=== PATIENT | male | born 1985 | race Caucasian/White ===

== ENCOUNTER → 2017-10-14 | Day surgery (SDC) | payer BC ==
[2017-10-08 09:05] VITALS: BMI 21.0
[~2017-10-14] VITALS: Ht 190.5 cm; Wt 77.3 kg
[~2017-10-14] MED LIST: ACET-1311 PO; LIDOCAINE HCL 2% 2 ML VIAL (20MG/ML) ONE; OMEP20TA PO; PROPOFOL IV EMULSION 10 MG/ML 20 ML VIAL ONE
[2017-10-14 08:28] VITALS: Ht 190.5 cm; Wt 77.3 kg
--- NOTE | 2017-10-14 08:41 | Endo History and Physical ---
History & Physical Date of Service: Oct 14, 2017. Chief Complaint: hx barretts esophagus Referring Physician: Dr. Yisel Smith History of Present Illness 32 yo CM who presents for EGD secondary to Menchaca's Esophagus. Past Surgical History Hx Cardiac Surgery: No Hx Internal Defibrillator: No Hx Pacemaker: No Hx Abdominal Surgery: No Hx of Implantable Prosthesis: No Hx Post-Op Nausea and Vomiting: No Hx Cancer Surgery: No Hx Thoracic Surgery: No Hx Orthopedic: No Hx Urinary Tract Surgery: No Family History IBD Social History Smoking Status: Never Smoker Hx Substance Use: No Hx Alcohol Use: Yes (OCC SOCIAL) Allergies Coded Allergies: Eggs or Egg-derived Products (Verified Allergy, Severe, ANAPHYLAXIS, ) NO KNOWN DRUG ALLERGIES (Verified Allergy, Unknown, NONE, 10/14/17) Current Medications Reported Home Medications Medications Dose Route/Sig Max Daily Dose Days Date Category Tylenol (Acetaminophen) 325 Mg Tab 650 Mg PO PRN 10/08/17 Reported Omeprazole 20 Mg Tab 1 Tab PO BID 11/21/15 Reported Vital Signs Weight (Kilograms): 77.27 Height (Feet): 6 Height (Inches): 3 Date Time Temp Pulse Resp B/P (MAP) Pulse Ox O2 Delivery O2 Flow Rate FiO2 10/14/17 08:35 36.1 57 20 123/80 (94) 100 Room Air Physical Exam General Appearance: WD/WN, no apparent distress Respiratory/Chest: Auscultation: breath sounds normal Cardiovascular: Heart Auscultation: RRR Abdomen: Bowel Sounds: normal Inspection & Palpation: soft, non-distended, no tenderness, guarding & rebound Assessment and Plan Assessment: 32 yo CM who presents for EGD secondary to Menchaca's Esophagus. Plan: Proceed with EGD.
--- NOTE | 2017-10-14 09:32 | Discharge Instructions ---
Endoscopy Patient Instructions Date / Procedure(s) Performed Oct 14, 2017. EGD Allergy Information Coded Allergies: Eggs or Egg-derived Products (Verified Allergy, Severe, ANAPHYLAXIS, ) NO KNOWN DRUG ALLERGIES (Verified Allergy, Unknown, NONE, 10/14/17) Discharge Date / Findings Oct 14, 2017. Schatzki's Ring (non-obstructing) Hiatal hernia Distal esophageal biopsies Medication Instructions OK to resume all medications today as prescribed Reported Home Medications Medications Dose Route/Sig Max Daily Dose Days Date Category Tylenol (Acetaminophen) 325 Mg Tab 650 Mg PO PRN 10/08/17 Reported Omeprazole 20 Mg Tab 1 Tab PO BID 11/21/15 Reported Provider Instructions Activity Restrictions - No exercising or heavy lifting for 24 hours. - Do not drink alcohol the day of the procedure. - Do not drive a car or operate machinery until the day after the procedure. - Do not make any important decisions or sign important papers in 24 hours after the procedure. Following Day: - Return to full activity which may include returning to work/school. Diet Start your diet with liquids and light foods (jello, soup, juice, toast). Then eat your usual diet if not nauseated. Treatment For Common After Affects For mild abdominal pain, bloating, or excessive gas: - Rest - Eat lightly - Lie on right side Follow-Up Information Follow-up with Dr. Yisel Smith as scheduled Anesthesia Information What You Should Know You have had a procedure that required some medicine to reduce anxiety and discomfort. This treatment is called moderate sedation. After receiving the treatment, you may be sleepy, but you will be able to breathe on your own. The effects of the treatment may last for several hours. Follow these instructions along with Activity/Diet recommendations noted above: * Do NOT do anything where dizziness or clumsiness would be dangerous. * Rest quietly at home today, then you can be up and about tomorrow. * Have a responsible person stay with you the rest of today. * You may have had an I.V. today. If so, you may take the dressing off later today. Recommendations Call your doctor if: * Trouble breathing * Continuous vomiting for more than 24 hours * Temperature above 101 degrees * Severe abdominal pain or bloating * Pain not relieved by pain medicine ordered * There is increased drainage or redness from any incision * A large amount of rectal bleeding greater than 2-3 tablespoons. (If you had a polyp/s removed or have hemorrhoids, a small amount of blood - from the rectum is to be expected.) * You have any unanswered questions or concerns. IN THE EVENT OF A SERIOUS EMERGENCY, GO TO THE NEAREST EMERGENCY ROOM Your discharge instructions were prepared by provider Jhonny Godwin. Patient Instructions Signature Page David May Patient (or Guardian) Signature/Date: I have read and understand the instructions given to me by my caregivers. Caregiver/RN/Doctor Signature/Date: The above-named patient and/or guardian has received patient instructions on this date. + Original Patient Signature Page (only) stays with chart. Please make copy for patient.
--- NOTE | 2017-10-14 09:35 | GI REPORT ---
Patient Name: David May Procedure Date: 10/14/2017 9:03 AM Date of : 1985 Admit Type: Outpatient Age: 32 Gender: Male Attending MD: Jhonny Godwin DO Procedure: Upper GI endoscopy Providers: Jhonny Godwin DO Referring MD: Yisel Smith Indications: Suspected Menchaca's esophagus Medicines: Monitored Anesthesia Care Complications: No immediate complications. Estimated Blood Loss: Estimated blood loss: none. Procedure: Pre-Anesthesia Assessment: - Prior to the procedure, a History and Physical was performed, and patient medications and allergies were reviewed. The patient's tolerance of previous anesthesia was also reviewed. The risks and benefits of the procedure and the sedation options and risks were discussed with the patient. All questions were answered, and informed consent was obtained. Prior Anticoagulants: The patient has taken no previous anticoagulant or antiplatelet agents. ASA Grade Assessment: I - A normal, healthy patient. After reviewing the risks and benefits, the patient was deemed in satisfactory condition to undergo the procedure. After obtaining informed consent, the endoscope was passed under direct vision. Throughout the procedure, the patient's blood pressure, pulse, and oxygen saturations were monitored continuously. The scope was introduced through the mouth, and advanced to the second part of duodenum. The upper GI endoscopy was accomplished without difficulty. The patient tolerated the procedure well. Findings: A non-obstructing Schatzki ring (acquired) was found at the gastroesophageal junction. Biopsies were taken with a cold forceps for histology. A small hiatal hernia was present. The examined duodenum was normal. Impression: - Non-obstructing Schatzki ring. Biopsied. - Small hiatal hernia. - Normal examined duodenum. Recommendation: - Resume previous diet. - Continue present medications. - Await pathology results. - Return to primary care physician as previously scheduled. Jhonny Godwin DO 10/14/2017 9:35:30 AM This report has been signed electronically. Note Initiated On: 10/14/2017 9:03 AM Number of Addenda: 0 I attest to the content of the Intraoperative Record and orders documented therein, exceptions below {[id number]}
--- NOTE | 2017-10-14 10:03 | Anesthesiology Progress Note ---
Anesthesia Post Op Note Date & Time Oct 14, 2017 at 10:02 Vital Signs Pain Intensity: 0 Vital Signs Past 12 Hours Date Time Temp Pulse Resp B/P (MAP) Pulse Ox O2 Delivery O2 Flow Rate FiO2 10/14/17 09:50 51 20 137/87 (104) 100 Room Air 10/14/17 09:37 60 18 129/80 (96) 100 Room Air 10/14/17 08:35 36.1 57 20 123/80 (94) 100 Room Air Notes Mental Status: alert / awake / arousable, participated in evaluation Pt Amnestic to Procedure: Yes Nausea / Vomiting: adequately controlled Pain: adequately controlled Airway Patency, RR, SpO2: stable & adequate BP & HR: stable & adequate Hydration State: stable & adequate Anesthetic Complications: no major complications apparent
[2017-10-14 10:04] VITALS: BP 135/85; PULSE 53; O2SAT 100
== END | disposition home or self-care (01) ==
LOC: C.GI 07:58
PROVIDERS: ATTEND Internal Medicine
DX: Z87.19 Personal history of other diseases of the digestive system (principal); K22.2 Esophageal obstruction; K44.9 Diaphragmatic hernia without obstruction or gangrene; Z91.012 Allergy to eggs